=== PATIENT | female | born 1990 ===

== ENCOUNTER 2017-01-05 10:47 | Emergency (ER) | payer MEDICAID ==
[2017-01-05 10:59] VITALS: BP 114/71; PULSE 84; RESP 16; TEMP 98.2; O2SAT 100
[2017-01-05 11:00] VITALS: BMI 33.5
--- NOTE | 2017-01-05 12:42 | ED PDOC ---
HPI: General Adult Time Seen by Provider: 01/05/17 11:31 Chief Complaint (Nursing): Finger,Hand,&Wrist History Per: Patient Additional Complaint(s): Pt. states yesterday at night a door accidentally closed on her L pinky finger. Since then she's had pain in the finger along with swelling. Of note, pt. states she thinks she sustained a fx to the same finger >5 years ago which did not require surgery. Denies numbness, tingling, other injury. Past Medical History Reviewed: Historical Data, Nursing Documentation, Vital Signs Vital Signs: Last Vital Signs Temp 98.2 F 01/05/17 10:59 Pulse 84 01/05/17 10:59 Resp 16 01/05/17 10:59 BP 114/71 01/05/17 10:59 Pulse Ox 100 01/05/17 10:59 - Family History Family History: States: No Known Family Hx - Home Medications Home Medications: Ambulatory Orders Medication Instructions Recorded Pnv No.95/Ferrous Fum/Folic AC 1 tab PO DAILY 01/06/16 [ Vitamin Tablet] Ibuprofen [Motrin Tab] 600 mg PO Q6 PRN #30 tab 01/08/16 - Allergies Allergies/Adverse Reactions: Allergies Allergy/AdvReac Type Severity Reaction Status Date / Time No Known Allergies Allergy Verified 02/13/14 19:02 Review of Systems ROS Statement: Except As Marked, All Systems Reviewed And Found Negative Physical Exam - Physical Exam Appears: Positive for: Well, Non-toxic, No Acute Distress Skin: Positive for: Normal Color, Warm. Negative for: Rash Extremity: Positive for: Other (L 5th digit with mild tenderness on PIP with ecchymosis but no tenderness) Neurologic/Psych: Positive for: Alert, Oriented - ECG O2 Sat by Pulse Oximetry: 100 - Radiology X-Ray: Interpreted by Me (hand x-ray) X-Ray Interpretation: Other (old fx noted at L PIP; nothing acute) - Progress ED Course And Treament: Pt. offered pain meds but refused. Finger immobilized in aluminum finger splint applied by PA. Disposition - Clinical Impression Clinical Impression: Finger sprain - Patient ED Disposition Is Patient to be Admitted: No - Disposition Referrals: [facility] [Outside] Disposition: Routine/Home Disposition Time: 12:45 Condition: STABLE Additional Instructions: Take Tylenol or Motirn at home for pain. Instructions: Finger Sprain (ED) Forms: [facility] (Mongolian)
--- NOTE | 2017-01-05 14:00 | RAD ---
PROCEDURE: Left Hand Radiographs. HISTORY: trauma COMPARISON: None. FINDINGS: BONES: No acute fracture, suspicious lytic or blastic change identified. 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 JOINTS: Normal. No osteoarthritic changes. SOFT TISSUES: Normal. OTHER FINDINGS: None. 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 No acute fracture or dislocation.
== END 2017-01-05 12:55 | disposition home or self-care (01) ==
LOC: H.ER 10:47
DX: S63.407A Traumatic rupture of unspecified ligament of left little finger at metacarpophalangeal and interphalangeal joint, initial encounter (principal); W23.1XXA Caught, crushed, jammed, or pinched between stationary objects, initial encounter; Y93.9 Activity, unspecified

== ENCOUNTER 2018-07-13 09:14 | Emergency (ER) | payer MEDICAID ==
[2018-07-13 09:15] VITALS: BMI 33.5
[2018-07-13 09:43] VITALS: RESP 18; TEMP 97.2; O2SAT 99
--- NOTE | 2018-07-13 10:49 | ED PDOC ---
HPI: Female Pain Time Seen by Provider: 07/13/18 09:48 Chief Complaint (Nursing): Female Genitourinary Chief Complaint (Provider): Vaginal bleeding History Per: Patient History/Exam Limitations: no limitations Onset/Duration Of Symptoms: Days Current Symptoms Are (Timing): Still Present Additional Complaint(s): 27yo female, with history of irregular menses, comes to ER reporting vaginal bleeding x 12 days. Patient sttes she has used 3 boxes of pads since the onset of symptoms. She reports associated crampy abdominal pain, but has not taken anything for her pain. Otherwise, no fever, chills, weakness, lightheadedness, headache or shortness of breath. No additional complaints. PMD: Mariana Graham Abnormal Vaginal Bleeding: Yes Past Medical History Reviewed: Historical Data, Nursing Documentation, Vital Signs Vital Signs: Last Vital Signs Temp 97.2 F L 07/13/18 09:40 Pulse 102 H 07/13/18 09:40 Resp 18 07/13/18 09:40 BP 127/84 07/13/18 09:40 Pulse Ox 99 07/13/18 09:40 - Surgical History Surgical History: No Surg Hx - Family History Family History: States: No Known Family Hx - Home Medications Home Medications: Ambulatory Orders Medication Instructions Recorded Pnv No.95/Ferrous Fum/Folic AC 1 tab PO DAILY 01/06/16 [ Vitamin Tablet] Ibuprofen [Motrin Tab] 600 mg PO Q6 PRN #30 tab 01/08/16 Naproxen [Naprosyn] 500 mg PO BID PRN #15 tablet 07/13/18 - Allergies Allergies/Adverse Reactions: Allergies Allergy/AdvReac Type Severity Reaction Status Date / Time No Known Allergies Allergy Verified 07/13/18 09:39 Review of Systems ROS Statement: Except As Marked, All Systems Reviewed And Found Negative Constitutional: Negative for: Weakness Respiratory: Negative for: Shortness of Breath Gastrointestinal: Positive for: Abdominal Pain Genitourinary Female: Positive for: Vaginal Bleeding Physical Exam - Reviewed Nursing Documentation Reviewed: Yes Vital Signs Reviewed: Yes - Physical Exam Appears: Positive for: No Acute Distress Head Exam: Positive for: ATRAUMATIC, NORMAL INSPECTION, NORMOCEPHALIC Skin: Positive for: Normal Color. Negative for: Pallor Eye Exam: Positive for: Normal appearance, EOMI, PERRL Neck: Positive for: Supple Cardiovascular/Chest: Positive for: Regular Rate, Rhythm. Negative for: Tachy cardia Respiratory: Positive for: Normal Breath Sounds. Negative for: Respiratory Distress Gastrointestinal/Abdominal: Positive for: Soft, Tenderness (mild suprapubic tenderness) Back: Positive for: Normal Inspection. Negative for: L CVA Tenderness, R CVA Tenderness Extremity: Positive for: Normal ROM Neurological/Psych: Positive for: Awake, Alert - Laboratory Results Result Diagrams: 07/13/18 10:50 07/13/18 10:50 - ECG O2 Sat by Pulse Oximetry: 99 (RA) Pulse Ox Interpretation: Normal Medical Decision Making Medical Decision Making: Impression: Vaginal bleeding Plan: -- Labs -- Urinalysis -- US Pelvis/Transvaginal Accession No. : [id number] Patient Name / ID : HERMILO MICHAEL / [id number] Exam Date : 07/13/2018 11:43:12 ( Approved ) Study Comment : Sex / Age : F / [id number] Creator : Anderson Haley MD Dictator : Anderson Haley MD Data Processing Clerk : [employer] : Anderson Haley MD Approver2 : Report Date : 07/13/2018 14:17:44 My Comment : Date of service: 07/13/2018 HISTORY: Suprapubic pain, vaginal bleeding LMP 07/02/2018. COMPARISON: None TECHNIQUE: Transabdominal, transvaginal. Real -time technique with 2D, duplex and color Doppler. FINDINGS: UTERUS: Measures cm. Normal in size and appearance. No fibroid or other mass lesion seen. ENDOMETRIUM: Measures 20.2 mm in diameter. Endometrial hypertrophy. No ultrasound findings to suggest gestational sac, fluid, debris, mass or polyp or other pathologic process within the endometrium. CERVIX: No cervical abnormality identified. RIGHT OVARY: Measures 3.3 x 4.2 x 3.4 cm. No solid mass. Normal flow. Simple cyst 3.1 x 2.4 x 2.7 cm LEFT OVARY: Measures 1.8 x 2.9 x 2.7 cm. No solid mass. Normal flow. Multiple subcentimeter follicles. FREE FLUID: No significant free fluid noted. OTHER FINDINGS: None. IMPRESSION: Unremarkable uterus. Endometrial hypertrophy without focal or diffuse abnormality. Simple cyst right adnexa. Scribe Attestation: Documented by Hazel Prescott acting as a scribe for Yenny Morales MD. Provider Scribe Attestation: All medical record entries made by the Scribe were at my direction and pers onally dictated by me. I have reviewed the chart and agree that the record accurately reflects my personal performance of the history, physical exam, medical decision making, and the department course for this patient. I have also personally directed, reviewed, and agree with the discharge instructions and disposition. Disposition - Clinical Impression Clinical Impression: Menorrhagia with irregular cycle - Disposition Referrals: [facility] [Outside] [facility] [Outside] Disposition: Routine/Home Disposition Time: 13:33 Condition: STABLE Prescriptions: Naproxen [Naprosyn] 500 mg PO BID PRN #15 tablet PRN Reason: Pain, Moderate (4-7) Instructions: Heavy Periods Forms: [facility] (Mongolian)
[2018-07-13 11:13] LABS: BASO % 0.4 % (0.0-2.0); EOS # 0.1 K/uL (0.0-0.7); EOS % 1.8 % (0.0-4.0); HEMOGLOBIN 10.9 g/dL (12.0-16.0); LYMPH # 2.5 K/uL (1.0-4.3); LYMPH % 36.4 % (20.0-40.0); MEAN CELL VOLUME 86.5 fl (81.0-99.0); MEAN CORPUSCULAR HEMOGLOBIN 29.1 pg (27.0-31.0); MEAN CORPUSCULAR HGB CONC 33.6 g/dL (33.0-37.0); MEAN PLATELET VOLUME 10.2 fl (7.2-11.7); MONO # 0.5 K/uL (0.0-0.8); MONO % 6.5 % (0.0-10.0); NEUT # 3.8 K/uL (1.8-7.0); NEUT % 54.9 % (50.0-75.0); NRBC % 0.1 % (0.0-0.0); RBC 3.76 Mil/uL (3.80-5.20); RED CELL DISTRIBUTION WIDTH 14.8 % (11.5-14.5); WHITE BLOOD COUNT 6.9 K/uL (4.8-10.8)
[2018-07-13 11:16] LABS: SQUAMOUS EPITHIAL 8 /hpf (0-5); URINE BILIRUBIN NEGATIVE (NEGATIVE); URINE BLOOD LARGE (NEGATIVE); URINE CLARITY CLOUDY (Clear); URINE COLOR YELLOW (YELLOW); URINE GLUCOSE (UA) NEG (NEGATIVE); URINE LEUKOCYTE ESTERASE NEG Leu/uL (Negative); URINE PROTEIN 100 mg/dL (NEGATIVE); URINE UROBILINOGEN 0.2-1.0 mg/dL (0.2-1.0)
[2018-07-13 11:18] LABS: PROTHROMBIN TIME 11.3 Seconds (9.8-13.1)
[2018-07-13 11:20] LABS: PARTIAL THROMBOPLASTIN TIME 32.2 Seconds (25.6-37.1)
[2018-07-13 11:31] LABS: ALB/GLOB RATIO 1.1 (1.0-2.1); ALBUMIN 4.2 g/dL (3.5-5.0); ALT/SGPT 70 U/L (9-52); AST/SGOT 53 U/L (14-36); BLOOD UREA NITROGEN 13 mg/dl (7-17); CALCIUM 9.2 mg/dL (8.4-10.2); GFR NON-AFRICAN AMERICAN > 60
[2018-07-13 14:02] VITALS: BP 107/71; PULSE 88
--- NOTE | 2018-07-13 14:21 | US ---
Date of service: 07/13/2018 HISTORY: Suprapubic pain, vaginal bleeding LMP 07/02/2018. COMPARISON: None TECHNIQUE: Transabdominal, transvaginal. Real -time technique with 2D, duplex and color Doppler. FINDINGS: UTERUS: Measures cm. Normal in size and appearance. No fibroid or other mass lesion seen. ENDOMETRIUM: Measures 20.2 mm in diameter. Endometrial hypertrophy. No ultrasound findings to suggest gestational sac, fluid, debris, mass or polyp or other pathologic process within the endometrium. CERVIX: No cervical abnormality identified. RIGHT OVARY: Measures 3.3 x 4.2 x 3.4 cm. No solid mass. Normal flow. Simple cyst 3.1 x 2.4 x 2.7 cm LEFT OVARY: Measures 1.8 x 2.9 x 2.7 cm. No solid mass. Normal flow. Multiple subcentimeter follicles. FREE FLUID: No significant free fluid noted. OTHER FINDINGS: None. IMPRESSION: Unremarkable uterus. Endometrial hypertrophy without focal or diffuse abnormality. Simple cyst right adnexa.
== END 2018-07-13 13:33 | disposition home or self-care (01) ==
LOC: H.ER 09:14
DX: N92.0 Excessive and frequent menstruation with regular cycle (principal)